=== PATIENT | male | born 1940 | race Caucasian/White ===

== ENCOUNTER 2016-05-19 12:04 | Emergency (ER) | payer MEDICARE, OTHER ==
[~2016-05-19] VITALS: Ht 172.7 cm; Wt 112.5 kg
[~2016-05-19 12:04] MED LIST: ASPI-110 PO; AVOD0.5C PO; B CO1TAB2 PO; COUM1TAB PO; CRAN600T; FISH1000 PO; FOLI1CAP7 PO; FURO1TAB62 PO; GABA300C5 PO; METO50TA11 PO; PLAV75TA29 PO; ROPI4TAB PO; ROSU40 PO; WARF-23 PO
[2016-05-19 12:43] VITALS: BP 142/70; PULSE 92; RESP 16; TEMP 97.5; O2SAT 96
[2016-05-19] MEDS ORDERED: MULT1TAB84 PO (14:19)
--- NOTE | 2016-05-19 15:14 | PD ---
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 Think he felt bug bite in his right calf and initially it was itchy. Called PMD who is concern about DVT and sent him to the ED. Denies any fever, chest pain, sob, n/v, abdominal pain, focal weakness or numbness. Denies any trauma. PFSH Past Medical History Hx Anticoagulant Therapy: Yes (COUMADIN PRIOR DVT) High Cholesterol: Yes Coronary Artery Disease: Yes Deep Vein Thrombosis: Yes Genitourinary: Yes (enlarged prostate) Hypertension: Yes Medical other: Yes (restless leg) Past Surgical History Abdominal Surgery: Yes (lower abdomen hernia repair) Appendectomy: Yes Coronary Stent: Yes (x 3) Joint Replacement: Yes (bilateral knee replacements) Social History Alcohol Use: Yes (occasional) Tobacco Use: No (never) Substance Use: No Allergies-Medications (Allergen,Severity, Reaction): Coded Allergies: No Known Allergies (Unverified , 05/19/16) Reported Meds & Prescriptions Reported Meds & Active Scripts Active Clindamycin (Clindamycin HCl) 300 Mg Cap 300 Mg PO Q6H Coumadin (Warfarin) 1 Mg Tab 1 Mg PO DAILY Warfarin 5 Mg Tab 5 Mg PO DAILY Reported Multivitamin Adults (Multiple Vitamins W/ Minerals) 1 Tab 1 Tab PO DAILY B Complex W/ C 1 Tab Tab 1 Tab PO DAILY Cranberry (Cranberry (Vaccinium Macrocarpon)) 600 Mg Tab 4,200 DAILY Fish Oil (Byram-3 Fatty Acids) 1,000 Mg Cap 1,000 Mg PO DAILY Aspirin 81 (Aspirin) 81 Mg Tabdr 81 Mg PO DAILY Lasix (Furosemide) 20 Mg Tab 20 Mg PO DAILY Avodart (Dutasteride) 0.5 Mg Cap 0.5 Mg PO HS Metoprolol Succinate ER 24 HR (Metoprolol Succinate) 50 Mg Tab 50 Mg PO DAILY Plavix (Clopidogrel Bisulfate) 75 Mg Tab 75 Mg PO DAILY Folic Acid 800 Mcg Cap 800 Mcg PO DAILY Crestor (Rosuvastatin Calcium) 40 Mg Tab 40 Mg PO HS Gabapentin 300 Mg Cap 300 Mg PO HS Ropinirole ER 4 Mg Tab 4 Mg PO HS Review of Systems Except as stated in HPI: all other systems reviewed are Neg Physical Exam Narrative GENERAL: 76yo M not in distress. SKIN: Warm and dry. HEAD: Atraumatic. Normocephalic. EYES: Pupils equal and round. No scleral icterus. No injection or drainage. ENT: No nasal bleeding or discharge. Mucous membranes pink and moist. NECK: Trachea midline. No JVD. CARDIOVASCULAR: Regular rate and rhythm. No murmur appreciated. RESPIRATORY: No accessory muscle use. Clear to auscultation. Breath sounds equal bilaterally. GASTROINTESTINAL: Abdomen soft, non-tender, nondistended. No rebound tenderness or guarding. MUSCULOSKELETAL: RLE: +Warmth and ttp right calf. Pt has edema in bilateral lower extremity. DP 2+. Sensation intact. NEUROLOGICAL: Awake and alert. No obvious cranial nerve deficits. Motor grossly within normal limits. Normal speech. PSYCHIATRIC: Appropriate mood and affect; insight and judgment normal. Data Data Last Documented VS Vital Signs Date Time Temp Pulse Resp B/P Pulse Ox O2 Delivery O2 Flow Rate FiO2 05/19/16 17:33 54 15 126/68 97 05/19/16 12:43 97.5 Orders Us Leg Venous Doppler (05/19/16 ) Complete Blood Count With Diff (05/19/16 15:09) Basic Metabolic Panel (Bmp) (05/19/16 15:09) Prothrombin Time / Inr (Pt) (05/19/16 15:09) Act Partial Throm Time (Ptt) (05/19/16 15:09) Clindamycin Inj (Cleocin Inj) (05/19/16 15:15) Ketorolac Inj (Toradol Inj) (05/19/16 15:15) Labs Laboratory Tests Test 05/19/16 15:16 White Blood Count 10.3 TH/MM3 Red Blood Count 5.01 MIL/MM3 Hemoglobin 14.6 GM/DL Hematocrit 43.7 % Mean Corpuscular Volume 87.4 FL Mean Corpuscular Hemoglobin 29.3 PG Mean Corpuscular Hemoglobin 33.5 % Concent Red Cell Distribution Width 13.3 % Platelet Count 127 TH/MM3 Mean Platelet Volume 8.8 FL Neutrophils (%) (Auto) 77.0 % Lymphocytes (%) (Auto) 11.8 % Monocytes (%) (Auto) 9.1 % Eosinophils (%) (Auto) 1.8 % Basophils (%) (Auto) 0.3 % Neutrophils # (Auto) 8.0 TH/MM3 Lymphocytes # (Auto) 1.2 TH/MM3 Monocytes # (Auto) 0.9 TH/MM3 Eosinophils # (Auto) 0.2 TH/MM3 Basophils # (Auto) 0.0 TH/MM3 CBC Comment DIFF FINAL Differential Comment Prothrombin Time 33.4 SEC Prothromb Time International 2.9 RATIO Ratio Activated Partial 45.0 SEC Thromboplast Time Sodium Level 140 MEQ/L Potassium Level 3.8 MEQ/L Chloride Level 104 MEQ/L Carbon Dioxide Level 26.7 MEQ/L Anion Gap 9 MEQ/L Blood Urea Nitrogen 12 MG/DL Creatinine 0.90 MG/DL Estimat Glomerular Filtration 82 ML/MIN Rate Random Glucose 93 MG/DL Calcium Level 8.4 MG/DL [facility] Medical Decision Making Medical Screen Exam Complete: Yes Emergency Medical Condition: Yes Differential Diagnosis Cellulitis vs. DVT Narrative Course 76yo M with right calf pain and edema for 2 days. Pt initially had itchy and thought it was bug bites. Right calf is warm to touch and clinically more like cellulitis. Labs reviewed, no leukocytosis. BMP unremarkable. INR therapeutic at 2.9. Pt given clindamycin and toradol. Will obtain US right lower ext to r/o DVT since pt has history of left DVT/PE. Sign out to next team to follow up US results. Diagnosis Primary Impression: Cellulitis of right lower leg Scripts Clindamycin 300 Mg [id number] Mg PO Q6H #28 CAP Ref 0 Prov:Travon Sánchez MD 05/19/16 Lorie Montiel DO May 19, 2016 15:14
[2016-05-19] MEDS ORDERED: KETOROLAC TROMETHAMINE 30 MG/ML (IVP) VIAL IV PUSH ONE (15:15)
[2016-05-19] MEDS ORDERED: CLINDAMYCIN INJ 600 MG in SODIUM CHLORIDE 0.9% INJ 100 ML IV ONE (15:15)
[2016-05-19 15:26] LABS: BASOPHIL % 0.3 % (0.0-2.0); EOSINOPHIL # 0.2 TH/MM3 (0-0.4); EOSINOPHIL % 1.8 % (0.0-4.0); HEMATOCRIT 43.7 % (39.0-51.0); HEMO FLAGS DIFF FINAL; LYMPH % 11.8 % (9.0-44.0); LYMPHOCYTE # 1.2 TH/MM3 (1.0-4.8); MEAN CELL VOLUME 87.4 FL (80.0-100.0); MEAN CORPUSCULAR HEMOGLOBIN 29.3 PG (27.0-34.0); MEAN CORPUSCULAR HGB CONC 33.5 % (32.0-36.0); MONO % 9.1 % (0.0-8.0); PLATELET COUNT 127 TH/MM3 (150-450); RED BLOOD COUNT 5.01 MIL/MM3 (4.50-5.90); RED CELL DISTRIBUTION WIDTH 13.3 % (11.6-17.2); WHITE BLOOD COUNT 10.3 TH/MM3 (4.0-11.0)
[2016-05-19 15:33] LABS: POTASSIUM 3.8 MEQ/L (3.5-5.1)
[2016-05-19 15:35] LABS: BICARBONATE 26.7 MEQ/L (21.0-32.0)
[2016-05-19 15:49] LABS: INTERNATIONAL NORMALIZED RATIO 2.9 RATIO; PROTHROMBIN TIME - PATIENT 33.4 SEC (9.8-11.6)
--- NOTE | 2016-05-19 16:21 | RADHPO ---
EXAM DATE/TIME: 05/19/2016 15:48 [facility] COMPARISON: No previous studies available for comparison. INDICATIONS : Right leg pain. MEDICAL HISTORY : Hypercholesterolemia. Hypertension. Deep venous thrombosis. BPH. Restless leg syndrome. CAD. SURGICAL HISTORY : Coronary artery stent. Appendectomy. Bilateral knee replacements. ENCOUNTER: Initial ACUITY: 3 days PAIN SCORE: 4/10 LOCATION: Right leg. TECHNIQUE: Venous ultrasound of the leg was performed from the inguinal ligament to the proximal calf. Real-ernestine e, color Doppler and spectral tracing, compression and augmentation techniques were used. FINDINGS: There is normal compressibility of the deep venous system from the inguinal region to the proximal ca lf. No echogenic clot is seen in the lumen of the common femoral, femoral, popliteal, and posterior tibial veins. There is a normal response of the venous system to proximal and distal augmentation an d respiration. There is a single mildly enlarged lymph node in the right inguinal region that contains a normal fatt y hilum. It measures approximately 4.1 x 3.0 x 1.1 cm. CONCLUSION: 1. No DVT is identified within the right lower extremity. 2. There is a single mildly enlarged lymph node in the right inguinal region. Ricci Collado MD on May 19, 2016 at 16:16 Board Certified Radiologist. This report was verified electronically.
[2016-05-19] MEDS ORDERED: CLIN1CAP6 PO (17:04)
--- NOTE | 2016-05-19 17:05 | PD ---
Physical Exam Date Seen by Provider: May 19, 2016 Time Seen by Provider: 17:02 Narrative 76-year-old male presents with complaint of some redness and pain behind his right leg. He thinks he had about 5 couple of days ago. He does have a history of DVT and is on Coumadin. He has been seen initially by Dr. Montiel. he was started on clindamycin. Ultrasound of the leg is negative for DVT. His INR is therapeutic. The patient for clindamycin will be given. He is advised to return if increasing pain or fever Data Data Last Documented VS Vital Signs Date Time Temp Pulse Resp B/P Pulse Ox O2 Delivery O2 Flow Rate FiO2 05/19/16 12:43 97.5 92 16 142/70 96 Orders Us Leg Venous Doppler (05/19/16 ) Complete Blood Count With Diff (05/19/16 15:09) Basic Metabolic Panel (Bmp) (05/19/16 15:09) Prothrombin Time / Inr (Pt) (05/19/16 15:09) Act Partial Throm Time (Ptt) (05/19/16 15:09) Clindamycin Inj (Cleocin Inj) (05/19/16 15:15) Ketorolac Inj (Toradol Inj) (05/19/16 15:15) Labs Laboratory Tests Test 05/19/16 15:16 White Blood Count 10.3 TH/MM3 Red Blood Count 5.01 MIL/MM3 Hemoglobin 14.6 GM/DL Hematocrit 43.7 % Mean Corpuscular Volume 87.4 FL Mean Corpuscular Hemoglobin 29.3 PG Mean Corpuscular Hemoglobin 33.5 % Concent Red Cell Distribution Width 13.3 % Platelet Count 127 TH/MM3 Mean Platelet Volume 8.8 FL Neutrophils (%) (Auto) 77.0 % Lymphocytes (%) (Auto) 11.8 % Monocytes (%) (Auto) 9.1 % Eosinophils (%) (Auto) 1.8 % Basophils (%) (Auto) 0.3 % Neutrophils # (Auto) 8.0 TH/MM3 Lymphocytes # (Auto) 1.2 TH/MM3 Monocytes # (Auto) 0.9 TH/MM3 Eosinophils # (Auto) 0.2 TH/MM3 Basophils # (Auto) 0.0 TH/MM3 CBC Comment DIFF FINAL Differential Comment Prothrombin Time 33.4 SEC Prothromb Time International 2.9 RATIO Ratio Activated Partial 45.0 SEC Thromboplast Time Sodium Level 140 MEQ/L Potassium Level 3.8 MEQ/L Chloride Level 104 MEQ/L Carbon Dioxide Level 26.7 MEQ/L Anion Gap 9 MEQ/L Blood Urea Nitrogen 12 MG/DL Creatinine 0.90 MG/DL Estimat Glomerular Filtration 82 ML/MIN Rate Random Glucose 93 MG/DL Calcium Level 8.4 MG/DL [facility] Medical Record Reviewed: Yes Supervised Visit with ANN: No Differential Diagnosis Differential includes cellulitis, DVT Narrative Course Ultrasound is negative for DVT. Patient will be treated for cellulitis Diagnosis Primary Impression: Cellulitis of right lower leg Scripts Clindamycin 300 Mg [id number] Mg PO Q6H #28 CAP Ref 0 Prov:Travon Sánchez MD 05/19/16 Disposition: DISCHARGE HOME Condition: Stable Travon Sánchez MD May 19, 2016 17:05
[2016-05-19 17:33] VITALS: BP 126/68
[2016-05-24] MEDS ORDERED: WARF-60 PO (12:56)
[2016-05-24] MEDS ORDERED: CARD2TAB PO (14:42)
[2016-05-24] MEDS ORDERED: FURO1TAB62 PO (16:02)
[2016-06-15] MEDS ORDERED: WARF-23 PO (12:22)
[2016-07-15] MEDS ORDERED: METO50TA11 PO (12:59)
[2016-07-15] MEDS ORDERED: ROPI4TAB PO (12:59)
== END 2016-05-19 17:34 | disposition home or self-care (01) ==
LOC: PHED 12:04
DX: L03.115 Cellulitis of right lower limb (principal); E78.00 Pure hypercholesterolemia, unspecified; I10 Essential (primary) hypertension; I25.10 Atherosclerotic heart disease of native coronary artery without angina pectoris; Z86.718 Personal history of other venous thrombosis and embolism; Z79.01 Long term (current) use of anticoagulants; Z95.5 Presence of coronary angioplasty implant and graft; M79.661 Pain in right lower leg
CPT/HCPCS: 80048; 85025; 85610; 85730; 93971; 96365; 96375; 99284; J1885